=== PATIENT | male | born 1980 | race Caucasian/White ===

== ENCOUNTER 2018-05-10 17:35 | Emergency (ER) | payer SELFPAY ==
[2018-05-10] MEDS ORDERED: Sodium Chloride 0.9% 1,000 ML IV ONE (18:34)
--- NOTE | 2018-05-10 18:40 | C.PDOC ---
History Of Present Illness 37 year old male, with no significant past medical history, presents to ED for evaluation of epigastric abdominal pain that developed 2-3 days ago. Pt reports associated nausea and one episode of vomiting today. Notes pain is worsened with certain food intake, states "eating strawberry and other fruits" worsens his abdominal pain. Otherwise, denies fever, chills, recent travel, recent illness, antibiotic use, diarrhea, back pain, or urinary symptoms. <Fabienne Chen - Last Filed: 05/10/18 21:23> History Per: Patient History/Exam Limitations: no limitations Onset/Duration Of Symptoms: Days Current Symptoms Are (Timing): Still Present Context: Food Location Of Pain/Discomfort: Epigastric Radiation Of Pain To:: None Quality Of Discomfort: "Pain" Associated Symptoms: Nausea, Vomiting. denies: Fever, Chills, Diarrhea, Loss Of Appetite, Back Pain, Chest Pain, Constipation, Urinary Symptoms Alleviating Factors: None Recent travel outside of the [place]: No Additional History Per: Patient <Fabienne Chen - Last Filed: 05/10/18 21:23> <Warren Fallon - Last Filed: 05/10/18 22:36> Time Seen by Provider: 05/10/18 18:33 Chief Complaint (Nursing): Abdominal Pain Past Medical History Reviewed: Historical Data, Nursing Documentation, Vital Signs Vital Signs: Last Vital Signs Temp 97.6 F 05/10/18 17:40 Pulse 68 05/10/18 17:40 Resp 20 05/10/18 17:40 BP 118/76 05/10/18 17:40 Pulse Ox 96 05/10/18 17:40 Family History: States: Unknown Family Hx - Social History Hx Alcohol Use: No Hx Substance Use: Yes - Immunization History Hx Tetanus Toxoid Vaccination: No Hx Influenza Vaccination: No Hx Pneumococcal Vaccination: No <Fabienne Chen - Last Filed: 05/10/18 21:23> Vital Signs: Last Vital Signs Temp 99.2 F 05/10/18 22:02 Pulse 60 05/10/18 22:02 Resp 16 05/10/18 22:02 BP 132/81 05/10/18 22:02 Pulse Ox 99 05/10/18 22:02 <Warren Fallon - Last Filed: 10/19/18 22:36> Review Of Systems Except As Marked, All Systems Reviewed And Found Negative. Constitutional: Negative for: Fever, Chills Gastrointestinal: Positive for: Nausea, Vomiting, Abdominal Pain. Negative for: Diarrhea, Constipation Genitourinary: Negative for: Dysuria, Frequency, Hematuria Musculoskeletal: Negative for: Back Pain <Fabienne Chen - Last Filed: 05/10/18 21:23> Physical Exam - Physical Exam Appears: Non-toxic, No Acute Distress Skin: Normal Color, Warm, Dry, No Rash Head: Normacephalic Eye(s): bilateral: PERRL Nose: No Flaring, No Discharge Oral Mucosa: Moist, No Drooling Neck: Trachea Midline, Supple Cardiovascular: Rhythm Regular, No Murmur, No JVD Respiratory: No Accessory Muscle Use, No Rales, No Rhonchi, No Stridor, No Wheezing Gastrointestinal/Abdominal: Soft, Tenderness (epigastric), No Distention, No Guarding, No Rebound Back: No CVA Tenderness Extremity: Normal ROM, No Deformity, No Swelling Neurological/Psych: Oriented x3, Normal Speech <Fabienne Chen - Last Filed: 05/10/18 21:23> ED Course And Treatment - Laboratory Results Result Diagrams: 05/10/18 19:00 05/10/18 19:13 Lab Interpretation: Abnormal O2 Sat by Pulse Oximetry: 96 (on RA) Pulse Ox Interpretation: Normal Progress Note: Blood work, UA, Abd & Pelvis CT scan ordered and reviewed. Pt was given Pepcid, Zofran, and Protonix. Blood work review, mild leukocytosis with left shift. LFT, lipase- no acute changes. On re-eval, pt still c/o mild epigastric pain. Abd: benign, (-) guarding, (-) rebound. Case discussed and sign out to , pending- CT A/P, re-eval, dispo <Fabienne Chen - Last Filed: 05/10/18 21:23> - Laboratory Results Result Diagrams: 05/10/18 19:00 05/10/18 19:13 <Warren Fallon - Last Filed: 05/10/18 22:36> Medical Decision Making Medical Decision Making: CT shows enteritis. Patient in no distress. Repeat abdominal exam with no guarding or rebound, mild epigastric/periumbilical tenderness. Will discharge, f/u PMD, instructed to return to ED for worsening pain, vomiting, fever, dyspnea, or any other problem. 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 - Scribe Statement The provider has reviewed the documentation as recorded by the Scribe Alize Abbasi All medical record entries made by the Major were at my direction and personally dictated by me. I have reviewed the chart and agree that the record accurately reflects my personal performance of the history, physical exam, medical decision making, and the department course for this patient. I have also personally directed, reviewed, and agree with the discharge instructions and disposition. <Fabienne Chen - Last Filed: 05/10/18 21:23> Physician Patient Turnover Patient Signed Over To: Warren Fallon Handoff Comments: CT A/P, re-eval, dispo <Fabienne Chen - Last Filed: 05/10/18 21:23>
[2018-05-10] MEDS ORDERED: Sodium Chloride 0.9% 1,000 ML ONE (18:55)
[2018-05-10 19:12] LABS: RED CELL DISTRIBUTION WIDTH 12.9 % (11.5-14.5)
[2018-05-10 19:16] LABS: BASO # 0.1 K/uL (0.0-0.2); BASO % 0.5 % (0.0-2.0); EOS # 0.1 K/uL (0.0-0.7); EOS % 0.5 % (0.0-4.0); HEMOGLOBIN 15.8 g/dL (12.0-18.0); LYMPH # 1.4 K/uL (1.0-4.3); LYMPH % 7.9 % (20.0-40.0); MEAN CELL VOLUME 89.9 fL (80.0-94.0); MEAN CORPUSCULAR HEMOGLOBIN 30.9 pg (27.0-31.0); MEAN CORPUSCULAR HGB CONC 34.4 g/dL (33.0-37.0); MEAN PLATELET VOLUME 9.6 fL (7.2-11.7); MONO # 0.7 K/uL (0.0-0.8); NEUT # 15.7 K/uL (1.8-7.0); NEUT % 87.1 % (50.0-75.0); NRBC % 0.1 % (0.0-2.0); PLATELET COUNT 253 K/uL (130-400); RBC 5.12 Mil/uL (4.40-5.90)
[2018-05-10 19:23] LABS: INR 1.2; PROTHROMBIN TIME 13.5 SECONDS (9.7-12.2)
[2018-05-10 19:24] LABS: ALB/GLOB RATIO 1.9 (1.0-2.1); ALBUMIN 4.9 g/dL (3.5-5.0); ALT/SGPT 26 U/L (21-72); AST/SGOT 21 U/L (17-59); BLOOD UREA NITROGEN 20 mg/dL (9-20); CALCIUM 9.9 mg/dl (8.6-10.4); GFR NON-AFRICAN AMERICAN > 60; LIPASE 103 U/L (23-300)
[2018-05-10] MEDS ORDERED: Iodixanol 320 MG/ML 100 ML BOTTLE IV ONE (19:39)
[2018-05-10 20:33] LABS: EOSINOPHIL 1 % (0-4); GIANT PLATELETS PRESENT; LARGE PLATELETS PRESENT; LYMPHOCYTE 6 % (20-40); MONOCYTE 4 % (0-10); NEUTROPHIL 89 % (50-75); PLATELET ESTIMATE NORMAL (NORMAL); TOTAL CELLS COUNTED 100
[2018-05-10 21:20] LABS: SQUAMOUS EPITHIAL < 1 /hpf (0-5); URINE BACTERIA OCC (<OCC); URINE BILIRUBIN NEGATIVE (NEGATIVE); URINE BLOOD NEGATIVE (NEGATIVE); URINE CLARITY Clear (Clear); URINE COLOR Yellow (YELLOW); URINE GLUCOSE (UA) NORMAL (Normal); URINE LEUKOCYTE ESTERASE NEG Leu/uL (Negative); URINE PROTEIN 2+ mg/dL (NEGATIVE); URINE UROBILINOGEN NORMAL mg/dL (0.2-1.0)
[2018-05-10 22:02] VITALS: BP 132/81; PULSE 60; RESP 16; TEMP 99.2; O2SAT 99
--- NOTE | 2018-05-11 11:42 | CT ---
Date of service: 05/10/2018 PROCEDURE: CT Abdomen and Pelvis with intravenous contrast HISTORY: Abdominal pain COMPARISON: None. TECHNIQUE: Multiple contiguous axial images were performed through the abdomen and pelvis with the use of intravenous contrast. Subsequently, sagittal and coronal reformatted images were obtained. Radiation dose: Total exam DLP = 336.04 mGy-cm. This CT exam was performed using one or more of the following dose reduction techniques: Automated exposure control, adjustment of the mA and/or kV according to patient size, and/or use of iterative reconstruction technique. FINDINGS: LOWER THORAX: Unremarkable. LIVER: Diffuse periportal edema. Small amount of pericholecystic fluid. GALLBLADDER AND BILE DUCTS: Unremarkable. PANCREAS: Unremarkable. No gross lesion or ductal dilatation. SPLEEN: Unremarkable. ADRENALS: Unremarkable. No mass. KIDNEYS AND URETERS: Unremarkable. No hydronephrosis. No solid mass. VASCULATURE: Unremarkable. No aortic aneurysm. BOWEL: Diffuse thick-walled small bowel loops seen throughout the abdomen concerning for enteritis. Prominent underdistention and or thickening of the left hemicolon which may represent underlying acute infectious and or inflammatory changes such as a colitis. Clinical correlation. APPENDIX: Unremarkable. Normal appendix. PERITONEUM: Unremarkable. No free fluid. No free air. LYMPH NODES: Few shotty para-aortic and mesenteric lymph nodes. BLADDER: Unremarkable. REPRODUCTIVE: Heterogeneous prostate. BONES: Degenerative changes. OTHER FINDINGS: None. IMPRESSION: 1. Diffuse thick-walled small bowel loops seen throughout the abdomen concerning for enteritis. Clinical correlation. 2. Prominent underdistention and or thickening of the left hemicolon which may represent underlying acute infectious and or inflammatory changes such as a colitis. Clinical correlation. 3. Diffuse periportal edema with a small amount of pericholecystic fluid. Differential includes fluid overload versus hepatitis versus additional etiology. Clinical correlation. A preliminary report was generated at 9:43 p.m. 05/10/[address] Juancarlos Peralta from [employer]
== END 2018-05-10 22:45 | disposition home or self-care (01) ==
LOC: C.ER 17:35
DX: R10.13 Epigastric pain (principal); R11.10 Vomiting, unspecified
CPT/HCPCS: 74177; 80053; 81001; 83690; 85025; 85610; 85730; 96361; 96374; 96375; 99285; C9113; J2405; J7030; Q9967